=== PATIENT | male | born 1965 | race Caucasian/White ===

== ENCOUNTER 2017-07-02 13:25 | Emergency (ER) | payer OTHER ==
[~2017-07-02] VITALS: Ht 177.8 cm; Wt 111.5 kg
[2017-07-02 15:14] VITALS: BP 148/96
== END 2017-07-02 15:15 | disposition home or self-care (01) ==
LOC: EME 13:25
PROC: 3E0234Z Introduction of Serum, Toxoid and Vaccine into Muscle, Percutaneous Approach (ICD-10-PCS; principal; 2017-07-02)
DX: Z20.3 Contact with and (suspected) exposure to rabies (principal); W55.89XA Other contact with other mammals, initial encounter; Z23 Encounter for immunization
CPT/HCPCS: 99281; 99284

== ENCOUNTER 2017-07-05 14:31 | Emergency (ER) | payer OTHER ==
[~2017-07-05] VITALS: Ht 175.3 cm; Wt 112.2 kg
[2017-07-05 15:47] VITALS: BP 163/82
== END 2017-07-05 15:48 | disposition home or self-care (01) ==
LOC: EME 14:31
PROC: 3E0234Z Introduction of Serum, Toxoid and Vaccine into Muscle, Percutaneous Approach (ICD-10-PCS; principal; 2017-07-05)
DX: Z20.3 Contact with and (suspected) exposure to rabies (principal); W55.89XA Other contact with other mammals, initial encounter; Z29.14 Encounter for prophylactic rabies immune globulin
CPT/HCPCS: 99281; 99283